=== PATIENT | female | born 1990 | race Caucasian/White ===

== ENCOUNTER 2016-10-12 21:56 | Emergency (ER) | payer OTHER ==
[~2016-10-12] VITALS: Ht 157.5 cm; Wt 51.8 kg
[~2016-10-12 21:56] MED LIST: ANAPROX DS550 M1 PO; BACTRIM,SEPT1 TABLET PO; CLEOCIN300 MG PO; DEPO-PROVER150 MG/ML IM; FLAGYL500 MG PO; FLONASE16 G1 BOTH NARES; LEVAQUIN750 MG PO; MUCUS ER600 MG PO; NAPROSYN500 MG PO; NOHOMEMEDS; PYRIDIUM100 MG PO; ULTRAM50 MG PO; VIBRAMYCIN100 MG PO; ZYRTEC10 M3 PO
[2016-10-12 22:01] VITALS: BP 128/81
== END 2016-10-13 00:22 | disposition left against medical advice (07) ==
LOC: EME 21:56
DX: S09.93XA Unspecified injury of face, initial encounter (principal); S39.81XA Other specified injuries of abdomen, initial encounter; M54.2 Cervicalgia; S10.91XA Abrasion of unspecified part of neck, initial encounter; S00.83XA Contusion of other part of head, initial encounter; S80.11XA Contusion of right lower leg, initial encounter; S40.011A Contusion of right shoulder, initial encounter; Y04.2XXA Assault by strike against or bumped into by another person, initial encounter; F17.200 Nicotine dependence, unspecified, uncomplicated
CPT/HCPCS: 70150; 80053; 81003; 82550; 82553; 83605; 83690; 84702; 85025; 99281; 99283

== ENCOUNTER 2016-11-04 09:05 | Emergency (ER) | payer OTHER ==
[~2016-11-04] VITALS: Ht 157.5 cm; Wt 51.5 kg
[2016-11-04 09:09] VITALS: BP 117/69
[2016-11-04] MEDS ORDERED: NAPROSYN500 MG PO (09:34)
== END 2016-11-04 09:59 | disposition home or self-care (01) ==
LOC: EME 09:05
DX: S63.502A Unspecified sprain of left wrist, initial encounter (principal); W10.8XXA Fall (on) (from) other stairs and steps, initial encounter
CPT/HCPCS: 73110; 99281; 99284

== ENCOUNTER 2016-12-11 09:14 | Emergency (ER) | payer OTHER ==
[~2016-12-11] VITALS: Ht 157.5 cm; Wt 52.6 kg
[2016-12-11] MEDS ORDERED: KEFLEX500 MG PO (10:39)
[2016-12-11 10:52] VITALS: BP 132/74
== END 2016-12-11 10:53 | disposition home or self-care (01) ==
LOC: EME 09:14
DX: O99.511 Diseases of the respiratory system complicating pregnancy, first trimester (principal); J02.0 Streptococcal pharyngitis; R05 Cough; O99.331 Smoking (tobacco) complicating pregnancy, first trimester; F17.200 Nicotine dependence, unspecified, uncomplicated; Z3A.11 11 weeks gestation of pregnancy
CPT/HCPCS: 87651 90; 99281; 99284

== ENCOUNTER 2016-12-24 20:02 | Emergency (ER) | payer OTHER ==
[~2016-12-24] VITALS: Ht 157.5 cm; Wt 52.0 kg
[~2016-12-24 20:02] MED LIST changes: +KEFLEX500 MG PO
[2016-12-24 21:22] LABS: EOSINOPHIL (%) 0.3 % (0-5); HEMATOCRIT 33.7 % (36.0-46.0); IMMATURE GRANULOCYTE (%) 0.6 % (0.0-0.7); IMMATURE GRANULOCYTE COUNT 0.1 K/uL; INSTRUMENT ABS NEUTROPHIL CT 7.3 K/uL; LYMPHOCYTE COUNT 1.9 K/uL (1.0-2.8); MCH 32.9 PG (29.0-34.0); MCV 93.9 FL (83-99); MONOCYTE (%) 6.1 % (3-12); MONOCYTE COUNT 0.6 K/uL (0-0.8); NEUTROPHIL (%) 73.9 % (45-76); NEUTROPHIL COUNT 7.3 K/uL (1.8-6.4); PLATELET COUNT 229 K/uL (156-360); RBC DIS.WIDTH-CV 12.3 % (11.8-14.6); RBC DIS.WIDTH-SD 43.1 % (39-53); RED BLOOD COUNT 3.59 M/uL (3.80-5.20); WHITE BLOOD COUNT 9.9 K/uL (4.1-10.2)
[2016-12-24 21:33] LABS: CHLORIDE 111 mEq/L (99-109); POTASSIUM 3.5 mEq/L (3.7-5.4); SODIUM 139 mEq/L (136-147)
[2016-12-24 21:35] LABS: GLUCOSE 88 mg/dL (70-99)
[2016-12-24 21:36] LABS: ANION GAP 10 MEQ/L (2-14)
[2016-12-24 21:38] LABS: GFR ESTIMATE (CALCULATED) > 59 mL/min/
[2016-12-24 21:39] LABS: UREA NITROGEN (BUN) 7 mg/dL (9-23)
[2016-12-24 22:06] LABS: QUANTITATIVE HCG 138710.5 MIU/ML
[2016-12-25 00:19] VITALS: BP 116/76
== END 2016-12-24 23:59 | disposition home or self-care (01) ==
LOC: EME 20:02
PROVIDERS: Emergency Medicine
DX: O9A.312 Physical abuse complicating pregnancy, second trimester (principal); R10.2 Pelvic and perineal pain; R06.02 Shortness of breath; R00.0 Tachycardia, unspecified; Y07.03 Male partner, perpetrator of maltreatment and neglect; O99.332 Smoking (tobacco) complicating pregnancy, second trimester; F17.200 Nicotine dependence, unspecified, uncomplicated; Z3A.14 14 weeks gestation of pregnancy
CPT/HCPCS: 71010; 76801; 80048; 84702; 85025; 99281; 99284

== ENCOUNTER 2017-01-18 16:24 | Emergency (ER) | payer OTHER ==
[~2017-01-18] VITALS: Ht 157.5 cm; Wt 52.6 kg
[2017-01-18] MEDS ORDERED: BACTRIM,SEPT1 TABLET PO (18:33)
[2017-01-18] MEDS ORDERED: CLEOCIN300 MG PO (18:44)
[2017-01-18 18:56] VITALS: BP 115/68
== END 2017-01-18 18:58 | disposition home or self-care (01) ==
LOC: RME 16:24 → EME 16:24 → RME 18:58
PROC: 0H98XZZ Drainage of Buttock Skin, External Approach (ICD-10-PCS; principal; 2017-01-18)
DX: L02.31 Cutaneous abscess of buttock (principal); F17.200 Nicotine dependence, unspecified, uncomplicated
CPT/HCPCS: 99281; 99283

== ENCOUNTER 2017-05-17 08:53 | Outpatient (CLI) | payer OTHER ==
[~2017-05-17] VITALS: Ht 157.5 cm; Wt 46.4 kg
[2017-05-17 09:10] VITALS: BP 122/67
[2017-05-17 10:05] LABS: ADD MIUA? YES; BILIRUBIN NEGATIVE; BLOOD NEGATIVE; COLOR YELLOW ((YELLOW)); GLUCOSE (STRIP) 150; KETONES 5; LEUKOCYTES SMALL; NITRITE POSITIVE; PROTEIN (STRIP) NEGATIVE; SPECIFIC GRAVITY 1.021 (1.000-1.030); UROBILINOGEN 0.2 MG/DL (0.2-1.0)
[2017-05-17] MEDS ORDERED: FIORICET 50-301 EACH PO (10:05)
[2017-05-17 10:31] LABS: BACTERIA 2+ /HPF; CASTS NONE SEEN /LPF; CRYSTALS NONE SEEN; EPITHELIAL CELLS RARE /HPF; MUCUS NONE SEEN /LPF; RED BLOOD CELLS NONE SEEN /HPF (0-5); UCUL ADDED? YES
[2017-05-17] MEDS ORDERED: MACROBID100 MG PO (10:53)
[2017-05-17 17:19] LABS: CANDIDA DNA PROBE NEGATIVE; GARDNERELLA DNA PROBE NEGATIVE; INTERNAL CONTROL VALID? YES
[2017-05-20 12:30] LABS: CHLAMYDIA TRACHOMATIS POSITIVE; NEISSERIA GONORRHOEAE NEGATIVE
== END 2017-05-17 11:10 | disposition home or self-care (01) ==
LOC: LDRP-OP 08:53 → 2WEST 08:54
PROVIDERS: Obstetrics & Gynecology
DX: O23.43 Unspecified infection of urinary tract in pregnancy, third trimester (principal); Z3A.32 32 weeks gestation of pregnancy; N39.0 Urinary tract infection, site not specified; O99.333 Smoking (tobacco) complicating pregnancy, third trimester; F17.200 Nicotine dependence, unspecified, uncomplicated
CPT/HCPCS: 59025; 81003; 87077; 87086; 87186; 87480; 87491; 87510; 87591; 87660; G0378

== ENCOUNTER 2017-07-16 08:10 | Inpatient (IN) | payer OTHER ==
[2017-07-16] VITALS (25 sets, daily range): BP systolic 103–131; BP diastolic 56–81
[~2017-07-16] VITALS: Ht 157.5 cm; Wt 66.2 kg
[~2017-07-16 08:10] MED LIST changes: +FIORICET 50-301 EACH PO; +MACROBID100 MG PO
[2017-07-16 10:45] LABS: BASOPHIL COUNT 0.1 K/uL (0-0.1); EOSINOPHIL (%) 0.5 % (0-5); EOSINOPHIL COUNT 0.1 K/uL (0-0.3); HEMATOCRIT 28.4 % (36.0-46.0); IMMATURE GRANULOCYTE (%) 2.2 % (0.0-0.7); IMMATURE GRANULOCYTE COUNT 0.3 K/uL; INSTRUMENT ABS NEUTROPHIL CT 10.6 K/uL; LYMPHOCYTE COUNT 2.7 K/uL (1.0-2.8); MCH 30.2 PG (29.0-34.0); MCHC 32.4 G/DL (30.0-36.0); MCV 93.1 FL (83-99); MEAN PLAT.VOLUME 9.6 uM^3 (9.5-12.4); MONOCYTE (%) 6.1 % (3-12); MONOCYTE COUNT 0.9 K/uL (0-0.8); NEUTROPHIL (%) 72.5 % (45-76); NEUTROPHIL COUNT 10.6 K/uL (1.8-6.4); NRBC (%) 0.3 /100 WBC (0-0); PLATELET COUNT 405 K/uL (156-360); RBC DIS.WIDTH-CV 14.7 % (11.8-14.6); RBC DIS.WIDTH-SD 49.8 % (39-53); RED BLOOD COUNT 3.05 M/uL (3.80-5.20); WHITE BLOOD COUNT 14.6 K/uL (4.1-10.2)
[2017-07-16 12:23] LABS: AMPHETAMINES QUANT VALUE 0 NG/ML; BARBITUATES QUANT VALUE 0 NG/ML; BENZODIAZEPINES QUANT VALUE 0 NG/ML; BENZODIAZEPINES, URINE SCREEN Negative (200 ng/mL); OPIATES QUANTITATIVE VALUE 0 NG/ML; PHENCYCLIDINE QUANT VALUE 0 NG/ML
[2017-07-17 06:39] LABS: BASOPHIL COUNT 0.1 K/uL (0-0.1); EOSINOPHIL (%) 0.7 % (0-5); EOSINOPHIL COUNT 0.1 K/uL (0-0.3); HEMATOCRIT 27.1 % (36.0-46.0); IMMATURE GRANULOCYTE (%) 1.6 % (0.0-0.7); IMMATURE GRANULOCYTE COUNT 0.3 K/uL; INSTRUMENT ABS NEUTROPHIL CT 12.5 K/uL; LYMPHOCYTE COUNT 3.3 K/uL (1.0-2.8); MCH 30.7 PG (29.0-34.0); MCHC 33.2 G/DL (30.0-36.0); MCV 92.5 FL (83-99); MEAN PLAT.VOLUME 9.8 uM^3 (9.5-12.4); MONOCYTE (%) 6.5 % (3-12); MONOCYTE COUNT 1.1 K/uL (0-0.8); NEUTROPHIL (%) 71.8 % (45-76); NEUTROPHIL COUNT 12.5 K/uL (1.8-6.4); NRBC (%) 0.1 /100 WBC (0-0); PLATELET COUNT 370 K/uL (156-360); RBC DIS.WIDTH-CV 14.8 % (11.8-14.6); RBC DIS.WIDTH-SD 49.9 % (39-53); RED BLOOD COUNT 2.93 M/uL (3.80-5.20); WHITE BLOOD COUNT 17.4 K/uL (4.1-10.2)
[2017-07-17 07:34] VITALS: BP 122/81
[2017-07-17 15:06] VITALS: BP 121/69
[2017-07-18] MEDS ORDERED: FERROUS GLUCON324 MG PO (10:29)
== END 2017-07-18 13:28 | disposition home or self-care (01) | DRG 775 ==
LOC: LDRP-OP → 2WEST 08:11 → LDRP-OP 20:11 → 2WEST 07-18 13:28 → LDRP-OP 08-10 12:55
PROVIDERS: Advanced Practice Midwife
PROC: 10E0XZZ Delivery of Products of Conception, External Approach (ICD-10-PCS; principal; 2017-07-16)
PROC: 3E033VJ Introduction of Other Hormone into Peripheral Vein, Percutaneous Approach (ICD-10-PCS; 2017-07-16)
PROC: 3E0P7GC Introduction of Other Therapeutic Substance into Female Reproductive, Via Natural or Artificial Opening (ICD-10-PCS; 2017-07-16)
PROC: 10907ZC Drainage of Amniotic Fluid, Therapeutic from Products of Conception, Via Natural or Artificial Opening (ICD-10-PCS; 2017-07-16)
PROC: 3E0S3BZ Introduction of Anesthetic Agent into Epidural Space, Percutaneous Approach (ICD-10-PCS; 2017-07-16)
PROC: 00HU33Z Insertion of Infusion Device into Spinal Canal, Percutaneous Approach (ICD-10-PCS; 2017-07-16)
DX: O48.0 Post-term pregnancy (principal); O99.02 Anemia complicating childbirth; D50.9 Iron deficiency anemia, unspecified; O99.824 Streptococcus B carrier state complicating childbirth; O99.324 Drug use complicating childbirth; F12.90 Cannabis use, unspecified, uncomplicated; O99.334 Smoking (tobacco) complicating childbirth; F17.200 Nicotine dependence, unspecified, uncomplicated; Z3A.40 40 weeks gestation of pregnancy; Z37.0 Single live birth
CPT/HCPCS: 80306 90; 85025; C1755; J3010; J3370; J7120

== ENCOUNTER 2017-10-10 15:54 | Emergency (ER) | payer OTHER ==
[~2017-10-10] VITALS: Ht 157.5 cm; Wt 57.3 kg
[~2017-10-10 15:54] MED LIST changes: +FERROUS GLUCON324 MG PO
[2017-10-10 16:08] LABS: APPEARANCE CLOUDY ((CLEAR)); BILIRUBIN NEGATIVE; BLOOD SMALL; COLOR YELLOW ((YELLOW)); GLUCOSE (STRIP) NEGATIVE; KETONES 80; LEUKOCYTES LARGE; NITRITE POSITIVE; PROTEIN (STRIP) 30; SPECIFIC GRAVITY 1.014 (1.000-1.030); UROBILINOGEN 0.2 MG/DL (0.2-1.0)
[2017-10-10 16:21] LABS: BACTERIA 2+ /HPF; EPITHELIAL CELLS 2+ /HPF; MUCUS NONE SEEN /LPF; RED BLOOD CELLS RARE /HPF (0-5); UCUL ADDED? YES; WHITE BLOOD CELLS TNTC /HPF (0-5)
[2017-10-10] MEDS ORDERED: PYRIDIUM200 MG PO (16:44)
[2017-10-10] MEDS ORDERED: MACROBID100 MG PO (16:44)
[2017-10-10 17:03] VITALS: BP 113/73
== END 2017-10-10 17:07 | disposition home or self-care (01) ==
LOC: EME 15:54
DX: N39.0 Urinary tract infection, site not specified (principal); F17.200 Nicotine dependence, unspecified, uncomplicated; Z88.0 Allergy status to penicillin
CPT/HCPCS: 81003; 87077; 87086; 87186; 99281; 99284